=== PATIENT | male | born 1975 | race Two or more races ===

== ENCOUNTER 2022-08-10 23:51 | Emergency (ER) | payer BC ==
[2022-08-11] MEDS ORDERED: SULFAMETHOXAZOLE/TRIMETHOPRIM 800MG/160MG D.S. TABLET PO ONE
[2022-08-11] MEDS ORDERED: SULFAMETHOXAZOLE/TRIMETHOPRIM 800MG/160MG D.S. TABLET ONE (00:03)
[2022-08-11 00:05] VITALS: BP 143/95; PULSE 73; RESP 16; TEMP 98.1; BMI 26.6
== END 2022-08-11 00:06 | disposition home or self-care (01) ==
LOC: FER 23:51
DX: L03.211 Cellulitis of face (principal)
CPT/HCPCS: 99283-25